=== PATIENT | male | born 1960 | race Caucasian/White ===

== ENCOUNTER 2017-08-31 01:13 | Inpatient (IN) | END 2017-09-02 19:58 | disposition home or self-care (01) | DRG 872 ==

== ENCOUNTER 2017-10-21 05:50 | Inpatient (IN) | END 2017-10-24 13:40 | disposition home health service (06) | DRG 190 ==

== ENCOUNTER 2018-01-21 05:49 | Inpatient (IN) | END 2018-01-22 18:00 | disposition home or self-care (01) | DRG 190 ==

== ENCOUNTER 2018-12-04 00:40 | Inpatient (IN) | payer OTHER ==
[~2018-12-04] VITALS: Ht 175.3 cm; Wt 112.5 kg
[~2018-12-04 00:40] MED LIST: AMIO200T4 PO; APIX5TAB PO; ATOR40TA68 PO; BENA20TA4 PO; CARV6.2579 PO; CEFP200T2 PO; DOXY100T21 PO; FAMO20TA18 PO; FLUT1AER INH; FURO40TA4 PO; IPRA4AER INHALATION; LINA5TAB PO; METF500T24 PO; PRED20TA PO; TIOT18CA INHALATION
[2018-12-04] MEDS ORDERED: ONDANSETRON 4 MG INJ IV PRN ×2 (02:00→02:30)
[2018-12-04] MEDS ORDERED: ACETAMINOPHEN 325 MG TAB PO PRN ×2 (02:00→02:30)
[2018-12-04] MEDS ORDERED: DOCUSATE SODIUM 100 MG CAP PO PRN (02:30)
[2018-12-04] MEDS ORDERED: FAMOTIDINE 20 MG TAB PO SCH (02:30)
[2018-12-04] MEDS ORDERED: NACL 0.9% 3 ML SYG IV SCH (02:30)
[2018-12-04] MEDS: FAMOTIDINE 20 MG TAB PO SCH ×2 (02:39→09:55)
--- NOTE | 2018-12-04 03:36 | ERD ---
ER Documentation Chief Complaint Chief Complaint BIB RA81 for SOB x4 hours, no CP HPI This is a very pleasant 4-year-old male well-known to us with with shortness of breath for past 4 hours getting progressively worse. Complains of orthopnea and dyspnea on exertion. Denies any chest pain. Denies any fevers or chills. Denies any current complaints. Patient with known history of cardiomyopathy with 25% ejection fraction. ROS All systems reviewed and are negative except as per history of present illness. Medications Home Meds Active Scripts Albuterol/Ipratropium* (Combivent Respimat*) 20-100 Mcg/Inh - 4 Gm Aer.w.adap, 1 PUFF INHALATION QID PRN for SHORTNESS OF BREATH, #1 INHALER 3 Refills Prov:RIVERA CARDONA MD 01/22/18 Furosemide* (Furosemide*) 40 Mg Tablet, 20 MG PO DAILY for 30 Days, TAB As needed for fluid retention/lower extremity swelling Prov:RIVERA CARDONA MD 01/22/18 Doxycycline Monohydrate* (Doxycycline Monohydrate*) 100 Mg Tablet, 100 MG PO BID, #6 TAB Prov:RIVERA CARDONA MD 01/22/18 Cefpodoxime Proxetil* (Cefpodoxime Proxetil*) 200 Mg Tablet, 200 MG PO Q12, #6 TAB Prov:RIVERA CARDONA MD 01/22/18 Prednisone* (Prednisone*) 20 Mg Tab, 40 MG PO DAILY, #6 TAB Prov:RIVERA CARDONA MD 01/22/18 Tiotropium [place]* (Spiriva*) 18 Mcg Cap.w.dev, 1 CAP INHALATION DAILY, #30 CAP Prov:RIVERA CARDONA MD 01/22/18 Linagliptin (TRADJENTA) 5 Mg Tablet, 5 MG PO DAILY for 30 Days, TAB 3 Refills Prov:LIN GARCIA 10/24/17 Famotidine* (Famotidine*) 20 Mg Tablet, 20 MG PO BID, #60 TAB Prov:LIN GARCIA 10/24/17 Fluticasone-Vilanterol (Breo Ellipta Inhaler) 100-25 Mcg/Actuation Aer.pow.ba, 1 INH INH DAILY, #1 INHALER 3 Refills Prov:LIN GARCIA 10/24/17 Atorvastatin* (Atorvastatin*) 40 Mg Tablet, 80 MG PO DAILY@21, #30 TAB Prov:RIVERA CARDONA MD 09/02/17 Benazepril Hcl* (Benazepril Hcl*) 20 Mg Tablet, 20 MG PO DAILY, #30 TAB Prov:RIVERA CARDONA MD 09/02/17 Apixaban* (Eliquis*) 5 Mg Tablet, 5 MG PO BID, #60 TAB Prov:RIVERA CARDONA MD 09/02/17 Amiodarone Hcl* (Amiodarone Hcl*) 200 Mg Tablet, 200 MG PO BID, #60 TAB Prov:RIVERA CARDONA MD 09/02/17 Reported Medications Carvedilol* (Carvedilol*) 6.25 Mg Tablet, 6.25 MG PO BID, #60 TAB 08/30/17 Metformin Hcl* (Metformin Hcl*) 500 Mg Tablet, 500 MG PO WITH BREAKFAST DINNE, #60 TAB 08/30/17 Allergies Allergies: Coded Allergies: amoxicillin (Verified Allergy, Unknown, rash, 10/21/17) PMhx/Soc History of Surgery: Yes (CABG) Anesthesia Reaction: No Hx Neurological Disorder: No Hx Respiratory Disorders: Yes (COPD) Hx Cardiac Disorders: Yes (CAD) Hx Psychiatric Problems: No Hx Miscellaneous Medical Probl: No Hx Alcohol Use: No Hx Substance Use: No Hx Tobacco Use: Yes Smoking Status: Current every day smoker Physical Exam Vitals Vital Signs Date Temp Pulse Resp B/P (MAP) Pulse Ox O2 O2 Flow FiO2 Time Delivery Rate 12/04/18 66 99 50 02:36 12/04/18 74 14 126/80 98 BIPAP 02:00 (95) 12/04/18 68 98 50 00:55 12/04/18 Non 15 00:48 Rebreather 12/04/18 96.9 80 22 155/92 88 00:45 (113) Physical Exam Const: No acute distress Head: Atraumatic Eyes: Normal Conjunctiva ENT: Normal External Ears, Nose and Mouth. Neck: Full range of motion. No meningismus. Resp: Scattered rales bilateral Cardio: Regular rate and rhythm, no murmurs Abd: Soft, non tender, non distended. Normal bowel sounds Skin: No petechiae or rashes Back: No midline or flank tenderness Ext: No cyanosis, or edema Neur: Awake and alert Psych: Normal Mood and Affect Result Diagram: 12/04/18 0043 12/04/18 0043 Results 24 hrs Laboratory Tests Test 12/04/18 00:43 12/04/18 00:45 12/04/18 00:56 White Blood Count 9.9 10^3/ul Red Blood Count 5.09 10^6/ul Hemoglobin 15.6 g/dl Hematocrit 49.3 % Mean Corpuscular Volume 96.9 fl Mean Corpuscular Hemoglobin 30.6 pg Mean Corpuscular 31.6 g/dl Hemoglobin Concent Red Cell Distribution Width 13.4 % Platelet Count 271 10^3/UL Mean Platelet Volume 10.3 fl Immature Granulocytes % 0.800 % Neutrophils % 53.1 % Lymphocytes % 36.6 % Monocytes % 5.6 % Eosinophils % 3.2 % Basophils % 0.7 % Nucleated Red Blood Cells % 0.0 /100WBC Immature Granulocytes # 0.080 10^3/ul Neutrophils # 5.2 10^3/ul Lymphocytes # 3.6 10^3/ul Monocytes # 0.6 10^3/ul Eosinophils # 0.3 10^3/ul Basophils # 0.1 10^3/ul Nucleated Red Blood Cells # 0.0 10^3/ul Prothrombin Time 12.6 Sec Prothrombin Time Ratio 1.0 INR International 0.93 Normalized Ratio Activated 31.9 Sec Partial Thromboplast Time Sodium Level 142 mmol/L Potassium Level 5.0 mmol/L Chloride Level 105 mmol/L Carbon Dioxide Level 29 mmol/L Anion Gap 8 Blood Urea Nitrogen 17 mg/dl Creatinine 1.15 mg/dl Est Glomerular Filtrat > 60 mL/min Rate mL/min Glucose Level 171 mg/dl Calcium Level 9.5 mg/dl Total Bilirubin 0.5 mg/dl Direct Bilirubin 0.00 mg/dl Indirect Bilirubin 0.5 mg/dl Aspartate Amino 48 IU/L Transf (AST/SGOT) Alanine 47 IU/L Aminotransferase (ALT/SGPT) Alkaline Phosphatase 59 IU/L Troponin I < 0.012 ng/ml B-Type Natriuretic Peptide 1190 PG/ML Total Protein 7.4 g/dl Albumin 4.4 g/dl Globulin 3.00 g/dl Albumin/Globulin Ratio 1.46 Blood Gas Specimen Source Blood arterial Arterial Blood Date Drawn 12/04/2018 1:18:34 AM Arterial Blood pH 7.324 (Temp corrected) Arterial Blood pCO2 49.0 mmhg (Temp correct) Arterial Blood pO2 87.9 mmHG (Temp corrected) Arterial Blood HCO3 24.9 mmol/L Arterial Blood Base Excess -1.7 mmol/L Arterial Blood 95.8 mmHG Oxygen Saturation Simon Test ACCEPTAB Arterial Blood Gas Right Radial Puncture Site Arterial 2.3 % Blood Carboxyhemoglobin Arterial Blood 0.2 % Methemoglobin Blood Gas A-a O2 213.5 mmHg Differential Oxyhemoglobin Percent 93.4 % Blood Gas Temperature 37.0 C Blood Gas Respiration Rate 16.0 Blood Gas Actual 24 Respiration Rate Blood Gas Modality MASK - BIPAP FiO2 50.0 % Blood Gas IPAP/EPAP Ratio 15/5 Blood Gas Notified Whom MM Blood Gas Notified Time 12/04/2018 1:23:07 AM POC Venous Lactate 1.2 mmol/L Current Medications Medications Dose Sig/Ravi Start Time Status Last (Trade) Ordered Route PRN Stop Time Admin Dose Reason Admin Ondansetron 4 mg ER BRIDGE 12/04/18 HCl (Zofran PRN IV 02:00 Inj) NAUSEA/VOMITI 12/05/18 01:59 NG 650 mg ER BRIDGE 12/04/18 Acetaminophen PRN PO 02:00 (Tylenol .MILD PAIN 12/05/18 01:59 Tab) 1-3 OR TEMP Amiodarone 200 mg BID PO 12/04/18 HCl 09:00 (Cordarone) Apixaban 5 mg BID PO 12/04/18 (Eliquis) 09:00 80 mg DAILY@21 12/04/18 Atorvastatin PO 21:00 Calcium (Lipitor) Benazepril 20 mg DAILY PO 12/04/18 HCl 09:00 (Lotensin) Carvedilol 6.25 mg BID PO 12/04/18 (Coreg) 09:00 Famotidine 20 mg BID PO 12/04/18 12/04/18 (Pepcid) 02:30 02:39 1 inh DAILY INH 12/04/18 Fluticasone/ 09:00 Vilanterol (Breo Ellipta 100-25 Mcg Inh) Linagliptin 5 mg DAILY PO 12/04/18 (Tradjenta) 09:00 Metformin 500 mg WITH 12/04/18 HCl BREAKFAST 08:00 (Glucophage) DINNE PO Diagnostic 1 ea AC MEALS AND 12/04/18 Test (Pha) BEDTIME XX 07:00 (Accu-Chek) IV Flush 3 ml PER 12/04/18 (NS 3 ml) PROTOCOL IV 02:30 Ondansetron 4 mg Q6H PRN 12/04/18 HCl (Zofran IV 02:30 Inj) NAUSEA/VOMITI NG Furosemide 40 mg ONCE ONCE 12/04/18 (Lasix) IV 09:00 12/04/18 09:01 650 mg Q6H PRN 12/04/18 Acetaminophen PO .PAIN 1-3 02:30 (Tylenol OR TEMP Tab) Docusate 100 mg Q12H PRN 12/04/18 Sodium PO 02:30 (Colace) .CONSTIPATION Famotidine 20 mg Q12 PO 12/04/18 DC (Pepcid) 02:30 12/04/18 02:30 40 mg DAILY IV 12/04/18 Methylprednis 09:00 olone Sodium Succinate (Solu-Medrol) Albuterol/ 3 ml Q4H RESP 12/04/18 Ipratropium THERAPY HHN 05:00 (Duoneb) Procedures/MDM EKG: Rate/Rhythm: Normal Sinus Rhythm QRS, ST, T-waves: No changes consistent w/ acute ischemia Impression: No evidence of ischemia or arrhythmia Chest X-ray 1V Interpreted by me: Soft Tissue: No acute abnormalities Bones: No acute abnormalities Mediastinum/Cardiac Silhouette/Lungs: Increased interstitial fluid markings. Impression: CHF Patient's heart failure symptoms is concerning for acute decompensation and will require inpatient workup and monitoring. Further w/u for ischemia, arrhythmia, PE or dissection will be deferred to the inpatient team. Accepting Care Team: Current data and ongoing care discussed. Time: 2 AM Primary Provider: Dr. Zazueta Consulting: Deferred to inpatient team Outstanding Data: none Departure Diagnosis: Primary Impression: Pulmonary edema Chronicity: acute Qualified Codes: J81.0 - Acute pulmonary edema Condition: Serious SULEIMANFRACISCOSARAH BATISTA Dec 04, 2018 03:36
[2018-12-04] MEDS: ALBUTEROL/IPRATROPIUM (NEB) 3 ML AMP HHN SCH ×3 (04:48→12:20)
[2018-12-04] MEDS: ACCU-CHEK XX SCH ×2 (06:10→11:56)
[2018-12-04] MEDS ORDERED: metFORMIN 500 MG TAB PO SCH (08:00)
[2018-12-04] MEDS ORDERED: BENAZEPRIL 20 MG TAB PO SCH (09:00)
[2018-12-04] MEDS ORDERED: APIXABAN 5 MG TABLET PO SCH (09:00)
[2018-12-04] MEDS ORDERED: FLUTICASONE/VILANTEROL 100-25 INH SCH (09:00)
[2018-12-04] MEDS ORDERED: FUROSEMIDE 40 MG INJ IV ONE ×2 (09:00→10:30)
[2018-12-04] MEDS ORDERED: LINAGLIPTIN 5 MG TABLET PO SCH (09:00)
[2018-12-04] MEDS ORDERED: AMIODARONE 200 MG TAB PO SCH (09:00)
[2018-12-04] MEDS ORDERED: METHYLPREDNISOLONE 40 MG INJ IV SCH (09:00)
[2018-12-04 09:09] VITALS: Ht 175.3 cm; Wt 112.5 kg
[2018-12-04 09:30] VITALS: BP 112/73; PULSE 60; RESP 19
[2018-12-04] MEDS ORDERED: FURO40TA4 PO (10:34)
--- NOTE | 2018-12-04 10:35 | PDOCDIS ---
Discharge Instructions CONDITION [id number] Patient Condition: [id number] Good HOME CARE INSTRUCTIONS: [id number] Diet Instructions: [id number] Activity Restrictions: [id number] No Restrictions FOLLOW UP/APPOINTMENTS Follow-up Plan pcp 1 week cardiology 1 week OTHER ORDERS: Other Orders: quit smoking NIKIA JAMES MD Dec 04, 2018 10:35
[2018-12-04 11:15] VITALS: BP 107/61; PULSE 60; RESP 18
[2018-12-04] MEDS ORDERED: NICO1PAT38 TD (11:26)
--- NOTE | 2018-12-04 12:05 | HP ---
DATE OF ADMISSION: 12/04/2018 CHIEF COMPLAINT: Shortness of breath. HISTORY OF PRESENT ILLNESS: This is a 58-year-old male with a history of coronary artery disease and chronic congestive heart failure due to ischemic cardiomyopathy, presented to emergency room with co mplaint of shortness of breath and dyspnea on exertion. The patient denies any chest pain. No nause a, vomiting, or diaphoresis. The patient has been a heavy smoker for more than 40 years. Initial ev aluation revealed evidence of systolic congestive heart failure exacerbation. The BNP was elevated t o 1190. The patient received IV Lasix with improvement in his symptoms. PAST MEDICAL HISTORY: 1. Coronary artery disease. 2. Chronic systolic congestive heart failure. 3. Ischemic cardiomyopathy with ejection fraction of 25%. 4. Chronic obstructive pulmonary disease. 5. Paroxysmal atrial fibrillation. 6. Hypertension. 7. Nicotine addiction. PAST SURGICAL HISTORY: Status post coronary artery bypass graft, status post ICD placement. MEDICATIONS PRIOR TO ADMISSION: 1. 200 mg daily q.12 hours. 2. Combivent 3. Spiriva 5 mg b.i.d. 4. Amiodarone 200 mg b.i.d. 5. Lipitor 80 mg daily. 6. Benazepril 20 mg daily. 7. Coreg 6.25 mg b.i.d. 8. Lasix 20 mg daily. 9. Breo inhaler. 10. Pepcid 20 mg b.i.d., 11. Tradjenta 5 mg daily. 12. Metformin 500 mg b.i.d. SOCIAL HISTORY: Patient lives at home. He admits to continuing to smoking more than half a pack of cigarettes per day. PHYSICAL EXAMINATION: GENERAL: Well-developed, well-nourished, obese male who is in no apparent distress. VITAL SIGNS: Stable. He is afebrile. NECK: Supple. LUNGS: Clear to auscultation bilaterally. CARDIAC: Regular rate and rhythm. No murmurs, rubs or gallops. ABDOMEN: Soft, obese, nontender, nondistended, normoactive bowel sounds. EXTREMITIES: No clubbing, cyanosis, or edema. NEUROLOGICAL: Nonfocal. LABORATORY DATA: CBC is within normal limits. Basic metabolic panel is also within normal limits wi th BUN of 79, creatinine of 1.15. The chest x-ray showed mild pulmonary edema with cardiomegaly. ASSESSMENT: 1. A 66-year-old male with acute systolic congestive heart failure exacerbation. 2. Ischemic cardiomyopathy with ejection fraction of 25%. 3. Coronary artery disease. 4. Status post coronary artery bypass graft. 5. Status post ICD placement. 6. Hypertension. 7. Chronic obstructive pulmonary disease. 8. Type 2 diabetes mellitus. 9. Nicotine addiction. 10. Paroxysmal atrial fibrillation. PLAN: 1. Place in telemetry observation. Continue IV Lasix. 2. Discharge planning later if his oxygen saturation is adequate on room air or Lasix will be increa sed to 40 mg daily. I had a long conversation with the patient regarding smoking cessation and fluid restriction. Dictated By: NIKIA STACK/ALFONSO Conf#: [id number] DID#: [id number]
[2018-12-04] MEDS ORDERED: ATORVASTATIN 40 MG TAB PO SCH (21:00)
--- NOTE | 2018-12-13 05:55 | DS ---
DATE OF ADMISSION: 12/04/2018 DATE OF DISCHARGE: 12/04/2018 DISCHARGE DIAGNOSES: 1. Acute systolic congestive heart failure exacerbation, resolved. 2. Ischemic cardiomyopathy with ejection fraction of 25%. 3. Coronary artery disease. 4. Status post coronary artery bypass graft. 5. Status post ICD placement in the past. 6. Hypertension. 7. Chronic obstructive pulmonary disease. 8. Nicotine addiction. 9. Type 2 diabetes mellitus. 10. Paroxysmal atrial fibrillation. HOSPITAL COURSE: A 58-year-old male with multiple other medical problems including ischemic cardiomy opathy, presented to emergency room with complaint of shortness of breath and dyspnea on exertion. Sandhya reddy was diagnosed with acute CHF exacerbation. The patient received IV Lasix with significant improvem ent in his symptoms. I had a lung conversation with him and multiple family members regarding smoking cessation. He admit gerardo to smoking more than 40 years and continues to smoke daily. The patient was determined to quit s moking. I also discussed compliance with medical therapy, diet, and fluid restriction. He was disch arged home in a stable condition. MEDICATIONS ON DISCHARGE: Included the followin. Nicotine patch 21 mg daily for 14 days. 2. Combivent as needed. 3. Amiodarone 200 mg b.i.d. 4. Eliquis 5 mg b.i.d. 5. Lipitor 80 mg daily. 6. Benazepril 20 mg daily. 7. Coreg 6.25 mg b.i.d. 8. Cefpodoxime 200 mg q.12 hours. 9. Pepcid 20 mg b.i.d. 10. Breo inhaler. 11. Tradjenta 5 mg daily. 12. Metformin 500 mg b.i.d. 13. Spiriva 1 inhalation daily. 14. Lasix was increased to 40 mg daily. DISCHARGE FOLLOWUP: The patient was asked to follow up with his PCP and water meter reader as outpatient. Dictated By: NIKIA STACK/ALFONSO Conf#: [id number] DID#: [id number] CC: JUDITH DICKSON MD;*EndCC*
== END 2018-12-04 13:24 | disposition home or self-care (01) | DRG 291 ==
LOC: E/R 00:40 → TEL 01:52 → EDBEDREQSVC 02:52 → EDBEDREQ 02:52
PROVIDERS: ADMIT Internal Medicine; ATTEND Internal Medicine
DX: I11.0 Hypertensive heart disease with heart failure (principal); J81.0 Acute pulmonary edema; Z72.0 Tobacco use; I50.23 Acute on chronic systolic (congestive) heart failure; I25.5 Ischemic cardiomyopathy; Z95.1 Presence of aortocoronary bypass graft; J44.9 Chronic obstructive pulmonary disease, unspecified; E11.8 Type 2 diabetes mellitus with unspecified complications; I48.91 Unspecified atrial fibrillation; Z95.810 Presence of automatic (implantable) cardiac defibrillator
CPT/HCPCS: 36415; 36600; 71045; 80053; 82550; 82553; 82803; 82962; 83605; 83880; 84484; 85025; 85610; 85730; 93005; 94640; 94660; 94664; J1940; J2920